=== PATIENT | female | born 1950 | race Caucasian/White ===

== ENCOUNTER → 2017-03-02 | Outpatient (CLI) | payer MEDICARE, OTHER ==
[~2017-03-02] VITALS: Ht 167.6 cm; Wt 103.0 kg
[~2017-03-02] MED LIST: ALEN70TA47 PO; ASPI-983 PO; DEXAMETHASONE PF 10 MG/ML (DECADRON) VIAL ONE; GABA-488 PO; INSU100V6 SQ; LEVO200T6 PO; LORA10TA7 PO; LOSA25TA21 PO; METF500T4 PO; NAPR-1033 PO; OMEP20CA12 PO; PRAV20TA3 PO; PROP160C2 PO; TIZA2TAB3 PO; VNL75T PO; ZOLP5TAB7 PO; methylPREDNISolone 80 MG/ML (DEPO MEDROL) VIAL ONE
[2017-03-02 13:53] VITALS: BP 157/71
--- NOTE | 2017-03-06 19:09 | OPERATIVE REPORT ---
DATE OF SERVICE: 03/02/2017 DIAGNOSIS: 1. Cervical radiculopathy. 2. Thoracic pain. PROCEDURE: Fluoroscopic guidance of thoracic epidural steroid injection. PROCEDURE IN DETAIL: After obtaining informed consent from the patient, the patient's chart was reviewed. The patient was then brought to the procedure room and placed in prone position, timeout was performed. The upper back was prepped with antiseptic solution and under fluoro guidance, patient's T1-T2 region was identified. The T1-T2 vertebral body was identified with fluoro guidance and approximately 2 mL of 1.5% lidocaine solution was used to anesthetize the skin down to the pedicle and under fluoro guidance using a 22-guage 3-1/2 inch spinal needle, this tract was anesthetized all way from the pedicle down to the intralaminar space in between T1-T2. After this tract was anesthetized, then a 20-guage Tuohy was used and involved the same tract. Using a loss of resistance syringe, the Tuohy was then directed into the epidural space under fluoro guidance. Upon obtaining loss of resistance, the syringe was exchanged for a syringe containing radiopaque dye and secondary identification of the epidural space was then obtained. At this point, the syringe was then exchanged for a syringe containing 10 mL of dexamethasone and this was injected into the epidural space, washout was identified under fluoroscopy. Needle was then flushed with the normal saline from the loss of resistance, approximately 0.5 mL and then needle removed. Bandages were applied to all procedure sites. The patient tolerated procedure well and was taken to the recovery room in stable condition. COMPLICATIONS: None. Job ID: [id number] DocumentID: [id number] Dictated Date: 03/06/2017 09:38:36 Guide Excursion Date: 03/06/2017 16:54:43 Dictated By: RO ROBERT DO
== END ==
LOC: CARD 13:11
PROVIDERS: ATTEND Pain Medicine Interventional Pain Medicine
DX: M54.12 Radiculopathy, cervical region (principal); M50.30 Other cervical disc degeneration, unspecified cervical region; D64.9 Anemia, unspecified; F41.9 Anxiety disorder, unspecified; M19.91 Primary osteoarthritis, unspecified site; K21.9 Gastro-esophageal reflux disease without esophagitis; E03.9 Hypothyroidism, unspecified; E78.00 Pure hypercholesterolemia, unspecified; I10 Essential (primary) hypertension; B19.10 Unspecified viral hepatitis B without hepatic coma; M81.0 Age-related osteoporosis without current pathological fracture; Z79.82 Long term (current) use of aspirin; Z79.899 Other long term (current) drug therapy
CPT/HCPCS: 62321

== ENCOUNTER 2017-04-27 13:49 | Outpatient (CLI) | payer MEDICARE, OTHER ==
[~2017-04-27] VITALS: Ht 167.6 cm; Wt 83.9 kg
[~2017-04-27 13:49] MED LIST changes: -DEXAMETHASONE PF 10 MG/ML (DECADRON) VIAL ONE; -methylPREDNISolone 80 MG/ML (DEPO MEDROL) VIAL ONE
[2017-04-27] MEDS ORDERED: methylPREDNISolone 80 MG/ML (DEPO MEDROL) VIAL ONE (14:11)
[2017-04-27 14:35] VITALS: BP 162/74
[2017-04-27] MEDS ORDERED: DEXAMETHASONE 10 MG/ML (DECADRON) 1 ML VIAL ONE (15:03)
[2017-04-27 15:21] VITALS: BP 165/83
--- NOTE | 2017-04-29 04:10 | OPERATIVE REPORT ---
DATE OF SERVICE: 04/27/2017 DIAGNOSES: 1. Cervical radiculopathy. 2. Thoracic pain. PROCEDURE: Fluoroscopic guidance of thoracic epidural steroid injection, T1-T2 PROCEDURE IN DETAIL: After obtaining informed consent from the patient, the patient's chart was reviewed. The patient was then brought to the procedure room and placed in prone position, timeout was performed. The upper back was prepped with antiseptic solution and under fluoro guidance, patient's T1-T2 region was identified. The T1-T2 vertebral body was identified with fluoro guidance and approximately 2 mL of 1.5% lidocaine solution was used to anesthetize the skin down to the pedicle and under fluoro guidance using a 22-guage 3-1/2 inch spinal needle, this tract was anesthetized all way from the pedicle down to the intralaminar space in between T1 and T2. After this tract was anesthetized, then a 20-guage Tuohy was used and involved the same tract. Using a loss of resistance syringe, the Tuohy was then directed into the epidural space under fluoro guidance. Upon obtaining loss of resistance, the syringe was exchanged for a syringe containing radiopaque dye and secondary identification of the epidural space was then obtained. At this point, the syringe was then exchanged for a syringe containing 10 mL of dexamethasone and this was injected into the epidural space, washout was identified under fluoroscopy. Needle was then flushed with the normal saline from the loss of resistance, approximately 0.5 mL and then needle removed. Bandages were applied to all procedure sites. The patient tolerated procedure well and was taken to the recovery room in stable condition. COMPLICATIONS: None. Job ID: [id number] DocumentID: [id number] Dictated Date: 04/28/2017 19:12:42 Oral Surgery Technician Date: 04/29/2017 04:09:29 Dictated By: RO ROBERT DO
== END 2017-04-27 15:23 | disposition home or self-care (01) ==
LOC: CARD 13:49
PROVIDERS: ATTEND Pain Medicine Interventional Pain Medicine
DX: M54.12 Radiculopathy, cervical region (principal)
CPT/HCPCS: 62321

== ENCOUNTER → 2017-08-10 | Outpatient (CLI) | payer MEDICARE, OTHER | LOC: CARD 12:31 | PROVIDERS: ATTEND Internal Medicine Cardiovascular Disease | DX: I25.10 Atherosclerotic heart disease of native coronary artery without angina pectoris (principal); R07.9 Chest pain, unspecified; E13.9 Other specified diabetes mellitus without complications; R51 Headache; R60.9 Edema, unspecified; R06.02 Shortness of breath | CPT/HCPCS: 93306 ==

== ENCOUNTER → 2018-02-07 | Outpatient (CLI) | payer MEDICARE, OTHER ==
[~2018-02-07] VITALS: Ht 167.6 cm; Wt 92.1 kg
[~2018-02-07] MED LIST changes: +CATHETER FLUSH 10 ML SYR IV PRN; -LOSA25TA21 PO; +LOSA25TA6 PO; +METF-397 PO; -METF500T4 PO; +REGADENOSON 0.4 MG/5 ML SYR (LEXISCAN) IV ONE
[2018-02-07 09:59] VITALS: BP 179/85
[2018-02-07 10:04] VITALS: BP 164/77
--- NOTE | 2018-02-08 07:23 | STRESS TEST ---
DATE OF SERVICE: 02/07/2018 LEXISCAN MYOVIEW STRESS TEST REPORT REFERRING PHYSICIAN: Alfa Sifuentes DO. Baseline heart rate is 62. Baseline blood pressure is 182/86. Baseline EKG is sinus rhythm with no ischemic changes. In summary, the patient was injected with 10.11 mCi of technetium-99 Myoview and the resting images were obtained. Then, the patient received 0.4 mg of Lexiscan followed by 31.0 mCi of technetium-99 Myoview. Throughout the test, there were no EKG changes. The resting and stress images were reviewed and compared in the short axis, horizontal long axis, and vertical long axis views. Review of the images showed good radiotracer uptake with no significant ischemia or infarction. SSS is 1, SDS 1, TID value 1.02. On the gated images, the left ventricle appeared to be in normal size with normal contractility. Calculated ejection fraction is 60%. CONCLUSION: 1. The patient tolerated Lexiscan well. 2. No ischemia or infarction on SPECT images. 3. Normal left ventricular size with normal contractility. Calculated ejection fraction is 60%. Job ID: [id number] DocumentID: [id number] Dictated Date: 02/08/2018 06:41:22 Border Inspector Date: 02/08/2018 07:23:17 Dictated By: ELMER VALADEZ MD
== END ==
LOC: CARD 07:30
PROVIDERS: ATTEND Physician Assistant
DX: I25.10 Atherosclerotic heart disease of native coronary artery without angina pectoris (principal); R07.89 Other chest pain; K21.9 Gastro-esophageal reflux disease without esophagitis
CPT/HCPCS: 78452; 93017

== ENCOUNTER → 2020-08-11 | Outpatient (CLI) | payer MEDICARE, OTHER ==
[~2020-08-11] MED LIST changes: -ALEN70TA47 PO; +ALEN70TA80 PO; +ASPI-1238 PO; -ASPI-983 PO; -CATHETER FLUSH 10 ML SYR IV PRN; +LOSA25TA41 PO; -LOSA25TA6 PO; -OMEP20CA12 PO; +OMEP20CA18 PO; -REGADENOSON 0.4 MG/5 ML SYR (LEXISCAN) IV ONE; +TIZA-169 PO; -TIZA2TAB3 PO
== END ==
LOC: CARD 11:00
PROVIDERS: ATTEND Internal Medicine Cardiovascular Disease
DX: I11.9 Hypertensive heart disease without heart failure (principal); I34.0 Nonrheumatic mitral (valve) insufficiency
CPT/HCPCS: 93306

== ENCOUNTER → 2020-08-17 | Outpatient (CLI) | payer MEDICARE, OTHER ==
--- NOTE | 2020-08-17 13:46 | Diagnostic Imaging Report ---
INDICATION: Difficulty swallowing. TECHNIQUE: The procedure was performed in conjunction with Speech Pathology. Video fluoroscopy was performed during the swallowing of barium in multiple consistencies. A total of 54 seconds of fluoroscopic time was utilized. FINDINGS: The patient was given thin and thick barium as well as mechanical soft, meat, and cracker consistencies. The oral phase is unremarkable. There is normal epiglottic tilt and laryngeal elevation. No aspiration or penetration was observed. No residue was demonstrated. IMPRESSION: Normal modified barium swallow. Dictated by: Dictated on workstation # [id number]
== END ==
LOC: RAD 08:35
PROVIDERS: ATTEND Family Medicine
DX: R13.12 Dysphagia, oropharyngeal phase (principal)
CPT/HCPCS: 74230

== ENCOUNTER 2021-06-04 05:37 | Outpatient (CLI) | payer MEDICARE ==
[~2021-06-04] VITALS: Ht 165.5 cm; Wt 99.8 kg
[2021-06-08] MEDS ORDERED: RT-ALBUINH IH (14:33)
[2021-06-08] MEDS ORDERED: DICL20GE TP (14:33)
[2021-06-08] MEDS ORDERED: CETI10CA PO (14:33)
[2021-06-08] MEDS ORDERED: CIPR1DRO OT (14:33)
[2021-06-08] MEDS ORDERED: DULO30CA49 PO (14:33)
[2021-06-08] MEDS ORDERED: MELA10TA PO (14:33)
[2021-06-08] MEDS ORDERED: TOLT2TAB19 PO (14:33)
[2021-06-08] MEDS ORDERED: FLUT9.9S NS (14:33)
[2021-06-08] MEDS ORDERED: CARB100T6 PO (14:33)
[2021-06-08] MEDS ORDERED: LINA5TAB PO (14:33)
[2021-06-08] MEDS ORDERED: PRIM250T33 PO (14:33)
[2021-06-08] MEDS ORDERED: TRM50T PO (14:33)
[2021-06-08] MEDS ORDERED: GABA800T10 PO (14:41)
[2021-06-08] MEDS ORDERED: TIZA4CAP8 PO (14:46)
[2021-06-08] MEDS ORDERED: TIZA6CAP9 PO (14:46)
== END 2021-06-09 08:27 | disposition home or self-care (01) ==
LOC: PREOP 05:37
PROVIDERS: ATTEND Otolaryngology Otolaryngology/Facial Plastic Surgery
DX: Z01.818 Encounter for other preprocedural examination (principal)

== ENCOUNTER 2021-06-11 08:14 | Day surgery (SDC) | payer MEDICARE ==
[2021-06-11] VITALS (10 sets, daily range): BP systolic 154–187; BP diastolic 5–80
[~2021-06-11] VITALS: Ht 165.5 cm; Wt 99.8 kg
[~2021-06-11 08:14] MED LIST changes: +CARB100T6 PO; +CETI10CA PO; +CIPR1DRO OT; +DICL20GE TP; +DULO30CA49 PO; +FLUT9.9S NS; +GABA800T10 PO; +LINA5TAB PO; +MELA10TA PO; +PRIM250T33 PO; +RT-ALBUINH IH; +TIZA4CAP8 PO; +TIZA6CAP9 PO; +TOLT2TAB19 PO; +TRM50T PO
[2021-06-11] MEDS ORDERED: LIDOCAINE/EPI 1%-1:200,000 (XYLOCAINE) 30 ML VIAL ONE (08:26)
[2021-06-11] MEDS ORDERED: MUPIROCIN 2% OINT 22 GM (BACTROBAN) TUBE ONE (08:26)
[2021-06-11] MEDS: LACTATED RINGERS 1,000 ML IV PRN ×3 (08:45→10:34)
[2021-06-11 08:48] LABS: HEMATOCRIT 37 % (35-52); HEMOGLOBIN 11.3 g/dL (11.5-16.0); MEAN CORPUSCULAR HEMOGLOBIN 28 pg (25-34); MEAN CORPUSCULAR HGB CONC 31 g/dL (32-36); MEAN CORPUSCULAR VOLUME 92 fL (80-99); MEAN PLATELET VOLUME 10.7 fL (9.0-12.2); PLATELET COUNT 283 10^3/uL (130-400); WHITE BLOOD COUNT 6.8 10^3/uL (4.3-11.0)
[2021-06-11 09:04] LABS: CALCIUM 9.2 MG/DL (8.5-10.1); CREATININE SERUM 1.16 MG/DL (0.60-1.30); POTASSIUM 4.4 MMOL/L (3.6-5.0)
[2021-06-11] MEDS ORDERED: MIDAZOLAM 2 MG/2 ML (VERSED) VIAL ONE (09:10)
[2021-06-11] MEDS ORDERED: fentaNYL INJ 100 MCG/2 ML AMP ONE (09:10)
--- NOTE | 2021-06-11 09:12 | Progress Note-Pre Operative ---
Pre-Operative Progress Note H&P Reviewed The H&P was reviewed, patient examined and no changes noted. 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
--- NOTE | 2021-06-11 09:36 | Progress Note-Post Operative ---
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 Specimen(s) collected/removed right chin lesion for frozen section RO AZAR MD Jun 11, 2021 09:36
[2021-06-11] MEDS ORDERED: ACETAMINOPHEN 325 MG TABLET PO PRN (09:45)
[2021-06-11] MEDS ORDERED: SEVOFLURANE (ULTANE) 15 ML INHAL SOLN ONE ×2 (10:03→10:04)
[2021-06-11] MEDS ORDERED: LIDOCAINE PF 2% 5 ML (XYLOCAINE) VIAL ONE (10:04)
[2021-06-11] MEDS ORDERED: proPOfol 200 MG/20 ML (DIPRIVAN) VIAL IV ONE (10:04)
--- NOTE | 2021-06-11 10:13 | Anesthesia-General Post-Op ---
General Patient Condition Mental Status/LOC: Same as Preop Cardiovascular: Satisfactory Nausea/Vomiting: Absent Respiratory: Satisfactory Pain: Controlled Complications: Absent Post Op Complications Complications None Follow Up Care/Instructions Patient Instructions None needed. Anesthesia/Patient Condition Patient Condition Patient is doing well, no complaints, stable vital signs, no apparent adverse anesthesia problems. No complications reported per nursing. TSERING BROWN CRNA Jun 11, 2021 10:13
== END 2021-06-11 12:20 ==
LOC: SDC 08:14
PROVIDERS: ATTEND Otolaryngology Otolaryngology/Facial Plastic Surgery
DX: C44.319 Basal cell carcinoma of skin of other parts of face (principal); K21.9 Gastro-esophageal reflux disease without esophagitis; E11.9 Type 2 diabetes mellitus without complications; E03.9 Hypothyroidism, unspecified; E78.5 Hyperlipidemia, unspecified; G47.33 Obstructive sleep apnea (adult) (pediatric); F41.9 Anxiety disorder, unspecified; F32.A Depression, unspecified; Z99.89 Dependence on other enabling machines and devices; Z79.899 Other long term (current) drug therapy; Z79.82 Long term (current) use of aspirin; Z79.4 Long term (current) use of insulin; Z79.890 Hormone replacement therapy
CPT/HCPCS: 36415; 80048; 85027; 87081

== ENCOUNTER → 2022-05-25 | Outpatient (CLI) | payer MEDICARE ==
[~2022-05-25] VITALS: Ht 167 cm; Wt 99.0 kg
[~2022-05-25] MED LIST changes: +ALBU8.5H6 IH; +REGADENOSON 0.4 MG/5 ML SYR (LEXISCAN) IV ONE; -RT-ALBUINH IH
[2022-05-25] MEDS: CATHETER FLUSH 10 ML SYR IVP PRN ×2 (10:23→11:17)
[2022-05-25 11:15] VITALS: BP 172/88
--- NOTE | 2022-05-25 13:38 | Cardiology Stress Test Report ---
Stress Test Report Date of Procedure/Referring: Date of Procedure: May 25, 2022 PCP Alfa Sifuentes DO Admitting Physician Admitting Physician: Attending Physician: Eladio Carmen MD Indications: CP Baseline Heart Rate: 87 Baseline Blood Pressure: Blood Pressure Systolic: 172 Blood Pressure Diastolic: 88 Baseline Vitals Vital Signs Date Time Temp Pulse Resp B/P (MAP) Pulse Ox O2 Delivery O2 Flow Rate FiO2 05/25/22 11:15 80 16 172/88 (116) 95 Room Air Baseline EKG: Baseline EKG: NSR Summary After explaining the procedure to the patient, she signed a consent and then brought to the stress nuclear laboratory. Patient received 0.4 mg Lexiscan for stress test, ECG, heart rate and blood pressure were monitored continuously. Resting and stress dose of radio tracer were injected, imaging was acquired and reviewed in short axis, horizontal long axis and vertical long axis views. TID: 1.06 SSS: 5 SDS: 5 EF: 65 1. Patient tolerated Lexiscan well 2. Breast attenuation with mild decrease uptake at the mid anterior wall with mild reversibility most probably secondary to breast attenuation, overall there is no significant ischemia or infarction on SPECT images 3. Normal left ventricular size, ejection fraction 65% Copy Copies To 1: ALFA SIFUENTES BASHAR J MD May 25, 2022 13:38
== END ==
LOC: CARD 08:44
PROVIDERS: ATTEND Internal Medicine Cardiovascular Disease
DX: I10 Essential (primary) hypertension (principal); N64.89 Other specified disorders of breast
CPT/HCPCS: 78452; 93017; A9502; C8929; 93306

== ENCOUNTER 2022-07-28 11:39 | Emergency (ER) | payer MEDICARE ==
[~2022-07-28] VITALS: Ht 165 cm; Wt 93.0 kg
[~2022-07-28 11:39] MED LIST changes: -REGADENOSON 0.4 MG/5 ML SYR (LEXISCAN) IV ONE
--- NOTE | 2022-07-28 11:49 | ED Fall/Injury ---
General Stated Complaint: FALL | LT SIDE WRIST AND HIP PAIN Source: patient Exam Limitations: no limitations History of Present Illness Date Seen by Provider: Jul 28, 2022 Time Seen by Provider: 11:49 Initial Comments This is a well-appearing 70-year-old female who presented to the emergency department via POV for complaints of left hip and left arm pain. States that she tripped over her dog and landed on her wooden coffee table breaking it 2 days ago. She has had increased pain in hip, worse with ambulation. She has a bruise on her left shoulder, left hip, and lower back region. She denies injury to head or neck. No loss of consciousness. Denies use of anticoagulants. She is still able to move her arm and leg just with significant pain. Has not taken anything [id number]. Allergies and Home Medications Allergies Coded Allergies: Penicillins (Verified Allergy, Unknown, 11/27/15) Sulfa (Sulfonamide Antibiotics) (Verified Allergy, Unknown, 11/27/15) codeine (Verified Allergy, Unknown, 11/27/15) Patient Home Medication List Home Medication List Reviewed: Yes Albuterol Sulfate (Ventolin Hfa) 1 Puff Puff, 2 PUFF IH Q4H, (Reported) Entered as Reported by: IOANA GRIGGS on 06/08/211432 Carbamazepine (Carbamazepine) 100 Mg Tab.chew, 100 MG PO BID, (Reported) Entered as Reported by: IONAA GRIGGS on 06/08/211432 Cetirizine HCl (Zyrtec) 10 Mg Capsule, 10 MG PO DAILY, (Reported) Entered as Reported by: IOANA GRIGGS on 06/08/211432 Ciprofloxacin HCl (Cetraxal) 1 Each Droperette, 1 EACH OT, (Reported) Entered as Reported by: IOANA GRIGGS on 06/08/211432 Diclofenac Sodium (Voltaren Arthritis Pain) 20 Gm Gel..gram., 20 GM TP, (Reported) Entered as Reported by: IOANA GRIGGS on 06/08/211432 Duloxetine HCl (Duloxetine HCl) 30 Mg Capsule.dr, 30 MG PO DAILY, (Reported) Entered as Reported by: IOANA GRIGGS on 06/08/21 143 Fluticasone Propionate (Flonase Allergy Relief) 9.9 Ml [place].susp, 1 SPRAY NS DAILY, (Reported) Entered as Reported by: IOANA GRIGGS on 06/08/21 143 Gabapentin (Gabapentin) 800 Mg Tablet, 800 MG PO TID, (Reported) Entered as Reported by: IOANA GRIGGS on 06/08/21 144 Insulin Glargine,Hum.rec.anlog (Lantus) 100 Unit/1 Ml Vial, 65 UNIT SQ HS, (Reported) Entered as Reported by: ROSMERY CORONADO on 11/27/15 07 Levothyroxine Sodium (Levothyroxine Sodium) 200 Mcg Tablet, 200 MCG PO DAILY, (Reported) Entered as Reported by: ROSMERY CORONADO on 11/27/15 07 Linagliptin (Tradjenta) 5 Mg Tablet, 5 MG PO DAILY, (Reported) Entered as Reported by: IOANA GRIGGS on 06/08/21 143 Melatonin (Melatonin) 10 Mg Tab.mphase, 10 MG PO HS, (Reported) Entered as Reported by: IOANA GRIGGS on 06/08/21 143 Omeprazole (Omeprazole) 20 Mg Capsule.dr, 20 MG PO DAILY, (Reported) Entered as Reported by: ROSMERY CORONADO on 11/27/15 07 Pravastatin Sodium (Pravastatin Sodium) 20 Mg Tablet, 20 MG PO DAILY, (Reported) Entered as Reported by: ROSMERY CORONADO on 11/27/15 07 Primidone (Mysoline) Unknown Strength Tablet, 200 PO HS, (Reported) Entered as Reported by: IOANA GRIGGS on 06/08/21 143 Tizanidine HCl (Tizanidine HCl) 4 Mg Capsule, 4 MG PO DAILY, (Reported) Entered as Reported by: IOANA GRIGGS on 06/08/21 144 Tizanidine HCl (Tizanidine HCl) 6 Mg Capsule, 8 MG PO, (Reported) Entered as Reported by: IOANA GRIGGS on 06/08/21 144 Tolterodine Tartrate (Tolterodine Tartrate) 2 Mg Tablet, 4 MG PO, (Reported) Entered as Reported by: IOANA GRIGGS on 06/08/21 143 Tramadol HCl (Tramadol HCl) 50 Mg Tablet, 50 MG PO Q4H PRN for PRN, (Reported) Entered as Reported by: IOANA GRIGGS on 06/08/21 143 Review of Systems Review of Systems Constitutional: see HPI Eyes: No Symptoms Reported Ears, Nose, Mouth, Throat: no symptoms reported Respiratory: no symptoms reported Cardiovascular: no symptoms reported Gastrointestinal: no symptoms reported Genitourinary: no symptoms reported Musculoskeletal: see HPI Skin: see HPI Psychiatric/Neurological: No Symptoms Reported Past Dogoror-Tdbanp-Rcqfbm Hx Immunizations Up To Date First/Initial COVID19 Vaccinat: JUNE 2020 Second COVID19 Vaccination Tim: JULY 2020 Past Medical History Surgeries: Yes (SMALL BOWEL RESECTION, HYSTERECTOMY, GALLBLADDER, SINUS SURGERY X6, SKIN ) Abdominal, Bowel Surgery, Gallbladder, Hysterectomy Respiratory: Yes (SOA WITH COLD WEATHER AND EXPERCISE- USES INHALERS) Chronic Bronchitis, Sleep Apnea Currently Using CPAP: Yes Cardiac: Yes High Cholesterol Neurological: No Genitourinary: Yes (BLADDER LEAKING PROBLEMS) Gastrointestinal: Yes (HX HEPITITIS B) Gastroesophageal Reflux, Gall Bladder Disease Musculoskeletal: Yes Arthritis Endocrine: Yes Diabetes, Non-Insulin dep HEENT: Yes (WEARS GLASSES) Cancer: Yes Skin What Type of Treatment Did You: Surgical Intervention Psychosocial: Yes Anxiety, Depression Integumentary: Yes (SKIN CANCER X4) Physical Exam Vital Signs Vital Signs - First Documented 07/28/22 11:55 Temp 36.1 Pulse 89 Resp 20 B/P (MAP) 183/90 (121) Pulse Ox 96 O2 Delivery Room Air Capillary Refill : Height, Weight, BMI Height: 5'6.00" Weight: 203lbs. 0.0oz. 92.978436sd; 35.49 BMI Method: General Appearance: WD/WN, no apparent distress HEENT: PERRL/EOMI, normal ENT inspection, pharynx normal Neck: full range of motion, supple, normal inspection Cardiovascular: regular rate, rhythm, no edema, no gallop Respiratory: lungs clear, normal breath sounds, no respiratory distress, no accessory muscle use Gastrointestinal: normal bowel sounds, non tender, soft Back: normal inspection, vertebral tenderness (low thoracic tenderness ) Extremities: normal range of motion, normal inspection Neurologic/Psychiatric: no motor/sensory deficits, alert, normal mood/affect, oriented x 3 Skin: normal color, warm/dry, other (bruising to left posterior shoulder and left hip) Malachi Coma Score Best Eye Response: (4) Open Spontaneously Best Verbal Response: (5) Oriented Best Motor Response: (6) Obeys Commands Malachi Total: 15 Progress/Results/Core Measures Results/Orders My Orders Orders - ZEUS JACKSON APRN Humerus, Left, 2 Views (07/28/22 12:02) Femur, Left, 2 Views (07/28/22 12:02) Hip, Left, 2 Views (07/28/22 12:02) Thoracic Spine, 2 Views Only (07/28/22 12:02) Lumbar Spine - 2-3 Views (07/28/22 12:02) Urinalysis (07/28/22 12:40) Vital Signs/I&O 07/28/22 11:55 Temp 36.1 Pulse 89 Resp 20 B/P (MAP) 183/90 (121) Pulse Ox 96 O2 Delivery Room Air Progress Progress Note : Progress Note Ambulated independently to exam room 1. Vital signs stable. GCS 15. ABCs intact. Will obtain imaging of her left humerus, left hip, thoracic and lumbar spine to evaluate for any fracture. No radicular symptoms at this time. Denies need for pain management at this time. Images reviewed no acute fracture. Treatment plan reviewed and she is agreeable with plan. Follow-up with primary care provider next week return to the ER for any new or concerning symptoms. Diagnostic Imaging Diagonstic Imaging: Xray Comments [facility], [place] NAME: ULICES LAM [facility] REC#: [id number] PT STATUS: REG ER : 1950 PHYSICIAN: ZEUS JACKSON APRN ADMIT DATE: 07/28/22/ER Draft Date of Exam:07/28/22 FEMUR, LEFT, 2 VIEWS EXAMINATION: Left femur radiographs, 2 views, 4 images. COMPARISON: None. HISTORY: 72-year-old female, fall. Left femur pain. FINDINGS: The left hip is not dislocated. There is chondrocalcinosis. There is no identified acute fracture. There is degenerative type enthesopathy at the distal quadriceps tendon insertion. IMPRESSION: No acute bony abnormality of the left femur. Dictated on workstation # [id number] Dict: 07/28/22 1240 Trans: 07/28/22 1245 [facility] [id number] Interpreted by: COURTNEY DESIR MD Electronically signed by: Diagonstic Imaging: Xray Comments [facility] [place] [place] NAME: ULICES LAM [facility] REC#: [id number] PT STATUS: REG ER : 1950 PHYSICIAN: ZEUS JACKSON APRN ADMIT DATE: 07/28/22/ER Draft Date of Exam:07/28/22 HIP, LEFT, 2 VIEWS EXAMINATION: Left hip radiographs, 2 views. COMPARISON: None. HISTORY: 72-year-old female, fall. Left hip pain. FINDINGS: The left hip is not dislocated. There is no joint space loss of the left hip, osteophyte formation, or subchondral cystic change. There are mild degenerative related findings at the pubic symphysis. There is chondrocalcinosis. There is no identified acute fracture. IMPRESSION: 1. No acute bony abnormality of the left hip. Dictated on workstation # [id number] Dict: 07/28/22 1239 Trans: 07/28/22 1244 [facility] [id number] Interpreted by: COURTNEY DESIR MD Electronically signed by: Diagonstic Imaging: Xray Comments [facility] [place] [place] NAME: ULICES LAM [facility] REC#: [id number] PT STATUS: REG ER : 1950 PHYSICIAN: ZEUS JACKSON APRN ADMIT DATE: 07/28/22/ER Draft Date of Exam:07/28/22 HUMERUS, LEFT, 2 VIEWS CLINICAL INDICATION: Patient fell 2 nights ago, tripped over dog. Patient has left-sided pain and left shoulder pain. EXAM: X-ray of the left humerus, 2 views. COMPARISON: None. FINDINGS: There is no acute fracture or dislocation. There is no significant bone or joint abnormality. There are small spurs involving the left acromioclavicular region. IMPRESSION: There is no acute fracture or dislocation. Dictated on workstation # [id number] Dict: 07/28/22 1241 Trans: 07/28/22 1243 [facility] [id number] Interpreted by: LAUREN CRAFT MD Electronically signed by: Josseline [facility] [place] [place] NAME: ULICES LAM [facility] REC#: [id number] PT STATUS: REG ER : 1950 PHYSICIAN: ZEUS JACKSON APRN ADMIT DATE: 07/28/22/ER Draft Date of Exam:07/28/22 LUMBAR SPINE - 2-3 VIEWS EXAMINATION: Lumbar spine radiographs, 3 views. COMPARISON: None. HISTORY: 72-year-old female, fall 2 days ago. Low back pain. FINDINGS: There are 5 lumbar-type vertebral bodies. There is moderate disc height loss at L5-S1. There are multilevel endplate degenerative related changes of the thoracolumbar spine. There is no identified compression deformity or fracture. There is a right total hip prosthesis. The sacroiliac joints are unremarkable in appearance. There are facet degenerative changes bilaterally at L4-L5 and L5-S1. IMPRESSION: 1. Multilevel disc degenerative changes of the lumbar spine which are most notable at L5-S1. 2. Bilateral facet degenerative changes at L4-L5 and L5-S1. 3. No identified acute compression deformity or other fracture. Dictated on workstation # [id number] Dict: 07/28/22 1241 Trans: 07/28/22 1243 [facility] [id number] Interpreted by: COURTNEY DESIR MD Electronically signed by: Diagonstic Imaging: Xray Comments [facility] [place] [place] NAME: ULICES LAM [facility] REC#: [id number] PT STATUS: REG ER : 1950 PHYSICIAN: ZEUS JACKSON APRN ADMIT DATE: 07/28/22/ER Draft Date of Exam:07/28/22 THORACIC SPINE, 2 VIEWS ONLY CLINICAL INDICATIONS: Patient status post fall with pain. Patient fell 2 nights ago, tripped over dog. EXAM: X-ray of the thoracic spine, 2 views. COMPARISON: None. FINDINGS: There are moderate to severely hypertrophic spurs seen throughout the thoracic spine. There is no acute fracture or dislocation. There is limited visualization of the upper thoracic spinal on the lateral view due to overlapping anatomical structures. IMPRESSION: There is thoracic spine degenerative disease with no acute fracture or dislocation. Dictated on workstation # [id number] Dict: 07/28/22 1242 Trans: 07/28/22 1244 [facility] [id number] Interpreted by: LAUREN CRAFT MD Electronically signed by: Departure Impression Primary Impression: Fall on same level Additional Impression: Contusion Disposition: 01 HOME, SELF-CARE Condition: Stable/Unchanged Departure-Patient Inst. Decision time for Depature: 12:58 Referrals: DEZ LERNER DO (PCP/Family) Primary Care Physician Patient Instructions: Minor Contusion ED Add. Discharge Instructions: Plan: 1. Discharge home. 2. Follow up with primary care provider next week. 3. Ice 20 minutes at a time. 4. May take Tylenol or Ibuprofen as needed for comfort per package. 5. May take Tylenol or Ibuprofen as needed for pain per package. 6. Return to ER for any new, concerning, or worsening symptoms. ZEUS JACKSON HUNTER SKIN DIVER Jul 28, 2022 11:49
--- NOTE | 2022-07-28 12:43 | Diagnostic Imaging Report ---
CLINICAL INDICATION: Patient fell 2 nights ago, tripped over dog. Patient has left-sided pain and left shoulder pain. EXAM: X-ray of the left humerus, 2 views. COMPARISON: None. FINDINGS: There is no acute fracture or dislocation. There is no significant bone or joint abnormality. There are small spurs involving the left acromioclavicular region. IMPRESSION: There is no acute fracture or dislocation. Dictated by: Dictated on workstation # [id number]
--- NOTE | 2022-07-28 12:43 | Diagnostic Imaging Report ---
EXAMINATION: Lumbar spine radiographs, 3 views. COMPARISON: None. HISTORY: 72-year-old female, fall 2 days ago. Low back pain. FINDINGS: There are 5 lumbar-type vertebral bodies. There is moderate disc height loss at L5-S1. There are multilevel endplate degenerative related changes of the thoracolumbar spine. There is no identified compression deformity or fracture. There is a right total hip prosthesis. The sacroiliac joints are unremarkable in appearance. There are facet degenerative changes bilaterally at L4-L5 and L5-S1. IMPRESSION: 1. Multilevel disc degenerative changes of the lumbar spine which are most notable at L5-S1. 2. Bilateral facet degenerative changes at L4-L5 and L5-S1. 3. No identified acute compression deformity or other fracture. Dictated by: Dictated on workstation # [id number]
--- NOTE | 2022-07-28 12:44 | Diagnostic Imaging Report ---
EXAMINATION: Left hip radiographs, 2 views. COMPARISON: None. HISTORY: 72-year-old female, fall. Left hip pain. FINDINGS: The left hip is not dislocated. There is no joint space loss of the left hip, osteophyte formation, or subchondral cystic change. There are mild degenerative related findings at the pubic symphysis. There is chondrocalcinosis. There is no identified acute fracture. IMPRESSION: 1. No acute bony abnormality of the left hip. Dictated by: Dictated on workstation # [id number]
[2022-07-28] MEDS ORDERED: L.E.T. SOLUTION 3 ML SYR TOP ONE (12:45)
--- NOTE | 2022-07-28 12:45 | Diagnostic Imaging Report ---
EXAMINATION: Left femur radiographs, 2 views, 4 images. COMPARISON: None. HISTORY: 72-year-old female, fall. Left femur pain. FINDINGS: The left hip is not dislocated. There is chondrocalcinosis. There is no identified acute fracture. There is degenerative type enthesopathy at the distal quadriceps tendon insertion. IMPRESSION: No acute bony abnormality of the left femur. Dictated by: Dictated on workstation # [id number]
--- NOTE | 2022-07-28 12:45 | Diagnostic Imaging Report ---
CLINICAL INDICATIONS: Patient status post fall with pain. Patient fell 2 nights ago, tripped over dog. EXAM: X-ray of the thoracic spine, 2 views. COMPARISON: None. FINDINGS: There are moderate to severely hypertrophic spurs seen throughout the thoracic spine. There is no acute fracture or dislocation. There is limited visualization of the upper thoracic spinal on the lateral view due to overlapping anatomical structures. IMPRESSION: There is thoracic spine degenerative disease with no acute fracture or dislocation. Dictated by: Dictated on workstation # [id number]
[2022-07-28 13:09] VITALS: BP 183/90
== END 2022-07-28 13:09 | disposition home or self-care (01) ==
LOC: EDUNIT# 11:39 → ER 11:42
DX: S70.02XA Contusion of left hip, initial encounter (principal); S40.012A Contusion of left shoulder, initial encounter; M54.50 Low back pain, unspecified; G47.30 Sleep apnea, unspecified; Z99.89 Dependence on other enabling machines and devices; W01.190A Fall on same level from slipping, tripping and stumbling with subsequent striking against furniture, initial encounter
CPT/HCPCS: 72070; 72100; 73060; 73502; 73552

== ENCOUNTER → 2022-10-31 | Outpatient (CLI) | payer MEDICARE ==
[~2022-10-31] MED LIST changes: -MELA10TA PO; +MELATONIN10 M5 PO
--- NOTE | 2022-10-31 12:02 | Diagnostic Imaging Report ---
INDICATION: Routine screening. COMPARISON: 06/01/2021 and 04/28/2020. TECHNIQUE: 2D and 3D bilateral screening mammography was performed with CAD. FINDINGS: Both breasts are heterogeneously dense, limiting the sensitivity of mammography. There are benign calcifications in both breasts. The benign nodule in the medial right breast is stable. No spiculated mass or malignant-appearing microcalcifications are seen. The axillae are unremarkable. IMPRESSION: No mammographic features suspicious for malignancy are identified. ACR BI-RADS Category 2: Benign findings. Result letter will be mailed to the patient. Note: At least 10% of breast cancer is not imaged by mammography. Dictated by: Dictated on workstation # [id number]
== END ==
LOC: RAD 10:01
PROVIDERS: ATTEND Family Medicine
DX: Z12.31 Encounter for screening mammogram for malignant neoplasm of breast (principal)
CPT/HCPCS: 77063; 77067

== ENCOUNTER 2023-01-19 11:26 | Emergency (ER) | payer MEDICARE, MEDICAID ==
[~2023-01-19] VITALS: Ht 165.1 cm; Wt 97.5 kg
[2023-01-19 12:50] LABS: BASOPHILS % (AUTO) 0 % (0-10); EOSINOPHILS # (AUTO) 0.2 10^3/uL (0.0-0.3); EOSINOPHILS % (AUTO) 2 % (0-10); HEMATOCRIT 28 % (35-52); HEMOGLOBIN 7.9 g/dL (11.5-16.0); LYMPHOCYTES # (AUTO) 1.4 10^3/uL (1.0-4.0); LYMPHOCYTES % (AUTO) 16 % (12-44); MEAN CORPUSCULAR HEMOGLOBIN 24 pg (25-34); MEAN CORPUSCULAR HGB CONC 29 g/dL (32-36); MEAN CORPUSCULAR VOLUME 83 fL (80-99); MEAN PLATELET VOLUME 9.8 fL (9.0-12.2); MONOCYTES # (AUTO) 0.8 10^3/uL (0.0-1.0); MONOCYTES % (AUTO) 9 % (0-12); NEUTROPHILS # (AUTO) 6.3 10^3/uL (1.8-7.8); NEUTROPHILS % (AUTO) 72 % (42-75); PLATELET COUNT 334 10^3/uL (130-400); WHITE BLOOD COUNT 8.7 10^3/uL (4.3-11.0)
[2023-01-19 12:55] LABS: ALBUMIN 3.6 GM/DL (3.2-4.5); POTASSIUM 4.2 MMOL/L (3.6-5.0)
[2023-01-19 12:56] LABS: CALCIUM 8.6 MG/DL (8.5-10.1)
[2023-01-19 12:57] LABS: TOTAL PROTEIN 6.8 GM/DL (6.4-8.2)
[2023-01-19 12:59] LABS: BILIRUBIN,TOTAL 0.2 MG/DL (0.1-1.0)
[2023-01-19 13:01] LABS: CREATININE SERUM 1.44 MG/DL (0.60-1.30)
[2023-01-19 13:04] LABS: MAGNESIUM 1.8 MG/DL (1.6-2.4)
--- NOTE | 2023-01-19 13:12 | ED Neurological Problem ---
General Chief Complaint: Dizziness/Syncope Stated Complaint: DIZZINESS | LEG CRAMPS Nursing Triage Note: PT TO TRIAGE BY WC WITH COMPLAINT OF DIZZINESS, MUSCLE SPASMS, AND UPPER RESPIRATORY SYMPTOMS. STATES TEST NEGATIVE FOR COVID AT HOME. Source: patient Exam Limitations: no limitations History of Present Illness Date Seen by Provider: Jan 19, 2023 Time Seen by Provider: 12:32 Initial Comments 73-year-old female presents to the ER with complaints of dizzy spells. She states that the dizziness is the worst when she first gets up or is moving around. States that her vision starts to go dark. She has to sit down for the symptoms to improve. She reports that she has also been having leg cramps which occur at night, states the cramps occur in her inner thighs. Patient is on Lasix, she also takes potassium, magnesium, and calcium. States that in the past she has had low electrolyte levels due to taking Lasix. She also reports sinusitis and symptoms including green nasal drainage, burning in her sinuses, sore throat, dry cough starting last Monday. Denies fevers. She denies chest pain. Reports mild shortness of air. Denies abdominal pain, nausea, vomiting, diarrhea. Allergies and Home Medications Allergies Coded Allergies: Penicillins (Verified Allergy, Unknown, 11/27/15) Sulfa (Sulfonamide Antibiotics) (Verified Allergy, Unknown, 11/27/15) codeine (Verified Allergy, Unknown, 11/27/15) Patient Home Medication List Home Medication List Reviewed: Yes Albuterol Sulfate (Ventolin Hfa) 1 Puff Puff, 2 PUFF IH Q4H, (Reported) Entered as Reported by: IOANA GRIGGS on 06/08/21 143 Carbamazepine (Carbamazepine) 100 Mg Tab.chew, 100 MG PO BID, (Reported) Entered as Reported by: IOANA GRIGGS on 06/08/21 143 Cetirizine HCl (Zyrtec) 10 Mg Capsule, 10 MG PO DAILY, (Reported) Entered as Reported by: IOANA GRIGGS on 06/08/21 143 Ciprofloxacin HCl (Cetraxal) 1 Each Droperette, 1 EACH OT, (Reported) Entered as Reported by: IOANA GRIGGS on 06/08/21 143 Diclofenac Sodium (Voltaren Arthritis Pain) 20 Gm Gel..gram., 20 GM TP, (Reported) Entered as Reported by: IOANA GRIGGS on 06/08/21 143 Duloxetine HCl (Duloxetine HCl) 30 Mg Capsule.dr, 30 MG PO DAILY, (Reported) Entered as Reported by: IOANA GRIGGS on 06/08/21 143 Fluticasone Propionate (Flonase Allergy Relief) 9.9 Ml [place].susp, 1 SPRAY NS DAILY, (Reported) Entered as Reported by: IOANA GRIGGS on 06/08/21 143 Gabapentin (Gabapentin) 800 Mg Tablet, 800 MG PO TID, (Reported) Entered as Reported by: IOANA GRIGGS on 06/08/21 144 Insulin Glargine,Hum.rec.anlog (Lantus) 100 Unit/1 Ml Vial, 65 UNIT SQ HS, (Reported) Entered as Reported by: ROSMERY CORONADO on 11/27/15 07 Levothyroxine Sodium (Levothyroxine Sodium) 200 Mcg Tablet, 200 MCG PO DAILY, (Reported) Entered as Reported by: ROSMERY CORONADO on 11/27/15 07 Linagliptin (Tradjenta) 5 Mg Tablet, 5 MG PO DAILY, (Reported) Entered as Reported by: IOANA GRIGGS on 06/08/21 143 Melatonin (Melatonin) 10 Mg Tab.mphase, 10 MG PO HS, (Reported) Entered as Reported by: IOANA GRIGGS on 06/08/21 143 Omeprazole (Omeprazole) 20 Mg Capsule.dr, 20 MG PO DAILY, (Reported) Entered as Reported by: ROSMERY CORONADO on 11/27/15 07 Pravastatin Sodium (Pravastatin Sodium) 20 Mg Tablet, 20 MG PO DAILY, (Reported) Entered as Reported by: ROSMERY CORONADO on 11/27/15 07 Primidone (Mysoline) Unknown Strength Tablet, 200 PO HS, (Reported) Entered as Reported by: IOANA GRIGGS on 06/08/21 143 Tizanidine HCl (Tizanidine HCl) 4 Mg Capsule, 4 MG PO DAILY, (Reported) Entered as Reported by: IOANA GRIGGS on 06/08/21 144 Tizanidine HCl (Tizanidine HCl) 6 Mg Capsule, 8 MG PO, (Reported) Entered as Reported by: IOANA GRIGGS on 06/08/21 144 Tolterodine Tartrate (Tolterodine Tartrate) 2 Mg Tablet, 4 MG PO, (Reported) Entered as Reported by: IOANA GRIGGS on 06/08/21 1433 Tramadol HCl (Tramadol HCl) 50 Mg Tablet, 50 MG PO Q4H PRN for PRN, (Reported) Entered as Reported by: IOANA GRIGGS on 06/08/21 1433 Review of Systems Review of Systems Constitutional: see HPI Past Ctmtgtp-Oxxrfa-Vyismi Hx Patient Social History Tobacco Use?: No Use of E-Cig and/or Vaping dev: No Substance use?: No Alcohol Use?: No Pt feels they are or have been: No Immunizations Up To Date First/Initial COVID19 Vaccinat: JUNE 2020 Second COVID19 Vaccination Tim: JULY 2020 Third COVID19 Vaccination Date: MAY 2021 Past Medical History Surgery/Hospitalization HX: TYPE II DIABETIC, TREMORS, GERD, HYPOTHYROID, MALU, APPE, HYST, RT HIP REPLACED, LT SHOULDER, LT KNEE SCOPE, SINUS, SMALL BOWEL BYPASS FOR WEIGHT LOSS Surgeries: Yes (SMALL BOWEL RESECTION, HYSTERECTOMY, GALLBLADDER, SINUS SURGERY X6, SKIN ) Abdominal, Bowel Surgery, Gallbladder, Hysterectomy Respiratory: Yes (SOA WITH COLD WEATHER AND EXPERCISE- USES INHALERS) Chronic Bronchitis, Sleep Apnea Currently Using CPAP: Yes Cardiac: Yes High Cholesterol Neurological: No Genitourinary: Yes (BLADDER LEAKING PROBLEMS) Gastrointestinal: Yes (HX HEPITITIS B) Gastroesophageal Reflux, Gall Bladder Disease Musculoskeletal: Yes Arthritis Endocrine: Yes Diabetes, Non-Insulin dep HEENT: Yes (WEARS GLASSES) Cancer: Yes Skin What Type of Treatment Did You: Surgical Intervention Psychosocial: Yes Anxiety, Depression Integumentary: Yes (SKIN CANCER X4) Physical Exam Vital Signs Vital Signs - First Documented 01/19/23 12:14 Temp 36.7 Pulse 70 Resp 16 B/P (MAP) 91/58 (69) Pulse Ox 99 O2 Delivery Room Air Capillary Refill : Height, Weight, BMI Height: 5'6.00" Weight: 203lbs. 0.0oz. 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0-14.5 % Platelet Count 334 130-400 10^3/uL Mean Platelet Volume 9.8 9.0-12.2 fL Immature Granulocyte % (Auto) 0 % Neutrophils (%) (Auto) 72 42-75 % Lymphocytes (%) (Auto) 16 12-44 % Monocytes (%) (Auto) 9 0-12 % Eosinophils (%) (Auto) 2 0-10 % Basophils (%) (Auto) 0 0-10 % Neutrophils # (Auto) 6.3 1.8-7.8 10^3/uL Lymphocytes # (Auto) 1.4 1.0-4.0 10^3/uL Monocytes # (Auto) 0.8 0.0-1.0 10^3/uL Eosinophils # (Auto) 0.2 0.0-0.3 10^3/uL Basophils # (Auto) 0.0 0.0-0.1 10^3/uL Immature Granulocyte # (Auto) 0.0 0.0-0.1 10^3/uL Sodium Level 135 135-145 MMOL/L Potassium Level 4.2 3.6-5.0 MMOL/L Chloride Level 102 98-107 MMOL/L Carbon Dioxide Level 22 21-32 MMOL/L Anion Gap 11 5-14 MMOL/L Blood Urea Nitrogen 21 H 7-18 MG/DL Creatinine 1.44 H 0.60-1.30 MG/DL Estimat Glomerular Filtration Rate 38 BUN/Creatinine Ratio 15 Glucose Level 214 H 70-105 MG/DL Calcium Level 8.6 8.5-10.1 MG/DL Corrected Calcium 8.9 8.5-10.1 MG/DL Magnesium Level 1.8 1.6-2.4 MG/DL Total Bilirubin 0.2 0.1-1.0 MG/DL Aspartate Amino Transf (AST/SGOT) 15 5-34 U/L Alanine Aminotransferase (ALT/SGPT) 15 0-55 U/L Alkaline Phosphatase 94 40-136 U/L Total Protein 6.8 6.4-8.2 GM/DL Albumin 3.6 3.2-4.5 GM/DL Influenza Type A (RT-PCR) Not Detected Not Detecte Influenza Type B (RT-PCR) Not Detected Not Detecte SARS-CoV-2 RNA (RT-PCR) Detected H Not Detecte My Orders Orders - LARY MCCURDY APRN Cbc And Automated Diff (01/19/23 12:41) Magnesium (01/19/23 12:41) Chest 1 View, Ap/Pa Only (01/19/23 12:41) Comprehensive Metabolic Panel (01/19/23 12:41) Monitor-Rhythm Ecg Trace Only (01/19/23 12:41) Ed Iv/Invasive Line Start (01/19/23 12:41) Covid 19 Inhouse Test (01/19/23 12:41) Influenza A And B By Pcr (01/19/23 12:41) Orthostatic Vital Signs (Adult (01/19/23 13:12) Ns Iv 1000 Ml (Ns Iv 1000 Ml) (01/19/23 13:30) Vital Signs/I&O 01/19/23 01/19/23 12:14 16:16 Temp 36.7 Pulse 70 73 Resp 16 17 B/P (MAP) 91/58 (69) 124/79 Pulse Ox 99 97 O2 Delivery Room Air Room Air 01/20/23 00:00 Intake Total 1000 ml Balance 1000 ml Blood Pressure Mean: 69 Progress Progress Note : Progress Note Patient seen and evaluated, resting comfortably in bed, no acute distress. Patient was hypotensive upon arrival, blood pressure normal during my assessment. Based on exam and symptoms, work-up initiated including CBC, CMP, magnesium, chest x-ray, EKG, COVID and flu swab. 1318 Labs reviewed. Patient has significant anemia, hemoglobin 7.9, hematocrit 28. CMP shows BUN 21, elevated creatinine 1.44, GFR 38, glucose 214. Previous kidney function 06/11/2021 showed creatinine 1.16, GFR 50, BUN 12. 1 L of IV fluids ordered. Patient's most recent EF was 60 to 65%, this was completed on 05/25/2022. Chest x-ray shows no acute cardiopulmonary abnormality. COVID- positive. Dizziness may be related to dehydration or anemia. 1550 results discussed with patient. Patient instructed to start taking iron supplement. Patient states that she has had anemia in the past and required medication, she is uncertain what medications she required. She denies any bleeding in her stool, denies bloody emesis, denies bleeding from any other location. Patient is on day 6 of COVID symptoms, she is out of the window for Paxlovid. Patient instructed to follow-up with her primary care provider if her sinusitis symptoms continue past 10 days. Discharge instructions and return precautions provided. Initial ECG Impression Date: Jan 19, 2023 Initial ECG Impression Time: 12:50 Initial ECG Rate: 64 Initial ECG Rhythm: Normal Sinus Initial ECG Intervals: Normal Initial ECG Impression: Normal Initial ECG Comparisson: Unchanged Departure Impression Primary Impression: Dizziness Additional Impressions: COVID Anemia Qualified Codes: D64.9 - Anemia, unspecified Disposition: 01 HOME, SELF-CARE Condition: Stable Departure-Patient Inst. Decision time for Depature: 15:52 Referrals: DEZ LERNER DO (PCP/Family) Primary Care Physician Patient Instructions: COVID-19 (DC) Add. Discharge Instructions: You should start taking an iron supplement, it is best to take with vitamin C. Vitron C is an iron supplement that contains vitamin C. You also can take regular iron with orange juice. Follow-up with your primary care provider regarding your anemia. If your sinus infection symptoms continue for 10 days, you will need an antibiotic at that time, you do not currently need an antibiotic. You need to stay in isolation until your symptoms start improving, then you must wear a mask for 5 days when in public. Return for significant shortness of breath, or any other new, concerning, or worsening symptoms. All discharge instructions reviewed with patient and/or family. Voiced understanding. LARY MCCURDY APRN Jan 19, 2023 13:11
--- NOTE | 2023-01-19 13:21 | Diagnostic Imaging Report ---
INDICATION: Chest pain. FINDINGS: Lungs are clear. No failure, effusion or pneumothorax. IMPRESSION: No acute appearing abnormality. Dictated by: Dictated on workstation # [id number]
[2023-01-19] MEDS ORDERED: NS IV 1000 ML 1,000 ML IV SCH (13:30)
[2023-01-19 16:16] VITALS: BP 124/79
== END 2023-01-19 16:16 | disposition home or self-care (01) ==
LOC: EDUNIT# 11:26 → ER 11:29
DX: U07.1 COVID-19 (principal); D64.9 Anemia, unspecified; R79.89 Other specified abnormal findings of blood chemistry; R03.1 Nonspecific low blood-pressure reading; G47.30 Sleep apnea, unspecified; Z99.89 Dependence on other enabling machines and devices; Z79.899 Other long term (current) drug therapy
CPT/HCPCS: 36415; 71045; 80053; 83735; 85025; 87636; 93005; 93041

== ENCOUNTER 2023-03-26 18:50 | Emergency (ER) | payer MEDICARE, MEDICAID ==
[~2023-03-26] VITALS: Ht 165.1 cm; Wt 94.0 kg
--- NOTE | 2023-03-26 19:18 | ED General ---
General Chief Complaint: Trauma-Non Activation Stated Complaint: TREMORS/FALL Source of Information: Patient Exam Limitations: No Limitations (DARIN CABAN) History of Present Illness Date Seen by Provider: Mar 26, 2023 Time Seen by Provider: 19:15 Initial Comments Patient is a 73-year-old female who presents to the ED for flulike symptoms. She states she woke up this morning with chills body aches fatigue sore throat nasal congestion. She states she had a temperature 100.6 at home. She denies taking any Tylenol or ibuprofen. She states she has been experiencing right flank pain over the past 2 days worse today. Dull achy pain no radiation. She does report some burning with urination frequent urination history of UTIs. She states she had COVID 6 weeks ago. She reports history of essential tremors. She states her tremors became worse today. She does take gabapentin and tizanidine. She states she did fall while getting up from the toilet landing back on the toilet when she stood. She also lost her balance fell against the wall hitting her right lower back. She denies hitting her head or loss of consciousness. She denies of any headache, dizziness, unilateral muscle wea kness or sensory changes. She denies any vomiting, cough, diarrhea, chest pain or shortness of breath. (DARIN CABAN) Allergies and Home Medications Allergies Coded Allergies: Penicillins (Verified Allergy, Unknown, 11/27/15) Sulfa (Sulfonamide Antibiotics) (Verified Allergy, Unknown, 11/27/15) codeine (Verified Allergy, Unknown, 11/27/15) Patient Home Medication List Home Medication List Reviewed: Yes (DARIN CABAN) Albuterol Sulfate (Ventolin Hfa) 1 Puff Puff, 2 PUFF IH Q4H, (Reported) Entered as Reported by: IOANA GRIGGS on 06/08/21 143 Carbamazepine (Carbamazepine) 100 Mg Tab.chew, 100 MG PO BID, (Reported) Entered as Reported by: IOANA GRIGGS on 06/08/21 1433 Cephalexin (Cephalexin) 500 Mg Tablet, 500 MG PO BID Prescribed by: DOV CANSECO on 03/26/232146 Cetirizine HCl (Zyrtec) 10 Mg Capsule, 10 MG PO DAILY, (Reported) Entered as Reported by: IOANA GRIGGS on 06/08/21 143 Ciprofloxacin HCl (Cetraxal) 1 Each Droperette, 1 EACH OT, (Reported) Entered as Reported by: IOANA GRIGGS on 06/08/21 143 Diclofenac Sodium (Voltaren Arthritis Pain) 20 Gm Gel..gram., 20 GM TP, (Reported) Entered as Reported by: IOANA GRIGGS on 06/08/21 143 Duloxetine HCl (Duloxetine HCl) 30 Mg Capsule.dr, 30 MG PO DAILY, (Reported) Entered as Reported by: IOANA GRIGGS on 06/08/21 143 Fluticasone Propionate (Flonase Allergy Relief) 9.9 Ml [place].susp, 1 SPRAY NS DAILY, (Reported) Entered as Reported by: IOANA GRIGGS on 06/08/21 143 Gabapentin (Gabapentin) 800 Mg Tablet, 800 MG PO TID, (Reported) Entered as Reported by: IOANA GRIGGS on 06/08/21 144 Insulin Glargine,Hum.rec.anlog (Lantus) 100 Unit/1 Ml Vial, 65 UNIT SQ HS, (Reported) Entered as Reported by: ROSMERY CORONADO on 11/27/15 07 Levothyroxine Sodium (Levothyroxine Sodium) 200 Mcg Tablet, 200 MCG PO DAILY, (Reported) Entered as Reported by: ROSMERY CORONADO on 11/27/15 07 Linagliptin (Tradjenta) 5 Mg Tablet, 5 MG PO DAILY, (Reported) Entered as Reported by: IOANA GRIGGS on 06/08/211432 Melatonin (Melatonin) 10 Mg Tab.mphase, 10 MG PO HS, (Reported) Entered as Reported by: IOANA GRIGGS on 06/08/211432 Omeprazole (Omeprazole) 20 Mg Capsule.dr, 20 MG PO DAILY, (Reported) Entered as Reported by: ROSMERY CORONADO on 11/27/15 07 Pravastatin Sodium (Pravastatin Sodium) 20 Mg Tablet, 20 MG PO DAILY, (Reported) Entered as Reported by: ROSMERY CORONADO on 11/27/15 07 Primidone (Mysoline) Unknown Strength Tablet, 200 PO HS, (Reported) Entered as Reported by: IOANA GRIGGS on 06/08/21 1433 Tizanidine HCl (Tizanidine HCl) 4 Mg Capsule, 4 MG PO DAILY, (Reported) Entered as Reported by: IOANA GRIGGS on 06/08/21 1446 Tizanidine HCl (Tizanidine HCl) 6 Mg Capsule, 8 MG PO, (Reported) Entered as Reported by: IOANA GRIGGS on 06/08/21 1446 Tolterodine Tartrate (Tolterodine Tartrate) 2 Mg Tablet, 4 MG PO, (Reported) Entered as Reported by: IOANA GRIGGS on 06/08/21 143 Tramadol HCl (Tramadol HCl) 50 Mg Tablet, 50 MG PO Q4H PRN for PRN, (Reported) Entered as Reported by: IOANA GRIGGS on 06/08/21 143 Review of Systems Review of Systems Constitutional: chills; No diaphoresis; malaise, weakness EENTM: No ear pain, No blurred vision, No double vision, No eye pain, No tearing, No mouth pain, No mouth swelling, No throat pain Respiratory: No cough, No dyspnea on exertion Cardiovascular: No chest pain, No edema Gastrointestinal: No abdominal pain, No diarrhea, No nausea, No vomiting Genitourinary: No decreased output, No discharge; dysuria, frequency Musculoskeletal: back pain; No joint pain Skin: No change in color, No change in hair/nails (DARIN CABAN) All Other Systems Reviewed Negative Unless Noted: Yes (DARIN CABAN) Past Kidpreu-Nioiwh-Pjmuyh Hx Immunizations Up To Date First/Initial COVID19 Vaccinat: JUNE 2020 Second COVID19 Vaccination Tim: JULY 2020 Third COVID19 Vaccination Date: MAY 2021 (DARIN CABAN) Past Medical History Surgery/Hospitalization HX: TYPE II DIABETIC, TREMORS, GERD, HYPOTHYROID, MALU, APPE, HYST, RT HIP REPLACED, LT SHOULDER, LT KNEE SCOPE, SINUS, SMALL BOWEL BYPASS FOR WEIGHT LOSS Surgeries: Yes (SMALL BOWEL RESECTION, HYSTERECTOMY, GALLBLADDER, SINUS SURGERY X6, SKIN ) Abdominal, Bowel Surgery, Gallbladder, Hysterectomy Respiratory: Yes (SOA WITH COLD WEATHER AND EXPERCISE- USES INHALERS) Chronic Bronchitis, Sleep Apnea Currently Using CPAP: Yes Cardiac: Yes High Cholesterol Neurological: No Genitourinary: Yes (BLADDER LEAKING PROBLEMS) Gastrointestinal: Yes (HX HEPITITIS B) Gastroesophageal Reflux, Gall Bladder Disease Musculoskeletal: Yes Arthritis Endocrine: Yes Diabetes, Non-Insulin dep HEENT: Yes (WEARS GLASSES) Cancer: Yes Skin What Type of Treatment Did You: Surgical Intervention Psychosocial: Yes Anxiety, Depression Integumentary: Yes (SKIN CANCER X4) (DARIN CABAN) Physical Exam Vital Signs Vital Signs - First Documented 03/26/23 19:05 Temp 39.0 Pulse 97 Resp 20 B/P (MAP) 170/75 (106) Pulse Ox 97 (YUNIER,HAMILTON K DO) Vital Signs Capillary Refill : (DARIN CABAN) Height, Weight, BMI Height: 5'6.00" Weight: 203lbs. 0.0oz. [id number]; 35.00 BMI Method: General Appearance: No Apparent Distress, WD/WN Eyes: Bilateral Eye Normal Inspection, Bilateral Eye PERRL, Bilateral Eye Abnormal EOM HEENT: PERRL/EOMI, TMs Normal, Normal ENT Inspection, Pharynx Normal Neck: Full Range of Motion, Normal Inspection, Non Tender, Supple Respiratory: Chest Non Tender, Lungs Clear, Normal Breath Sounds, No Accessory Muscle Use, No Respiratory Distress Cardiovascular: Regular Rate, Rhythm, No Edema, No Gallop, No JVD Gastrointestinal: Normal Bowel Sounds, No Organomegaly, No Pulsatile Mass, Non Tender Back: CVA Tenderness (R) Extremity: Normal Capillary Refill, Normal Inspection, Normal Range of Motion Neurologic/Psychiatric: Alert, Oriented x3, No Motor/Sensory Deficits, Normal Mood/Affect Skin: Normal Color, Warm/Dry (DARIN CABAN) Progress/Results/Core Measures Suspected Sepsis SIRS Temperature: Pulse: Respiratory Rate: Laboratory Tests 03/26/23 19:18: White Blood Count 12.3H Blood Pressure / Mean: Laboratory Tests 03/26/23 19:18: Creatinine 1.10, Platelet Count 239, Total Bilirubin 0.3 (DARIN CABAN) Results/Orders Lab Results Laboratory Tests Test 03/26/23 19:18 03/26/23 20:56 Range/Units White Blood Count 12.3 H 4.3-11.0 10^3/uL Red Blood Count 4.27 3.80-5.11 10^6/uL Hemoglobin 12.1 11.5-16.0 g/dL Hematocrit 39 35-52 % Mean Corpuscular Volume 92 80-99 fL Mean Corpuscular Hemoglobin 28 25-34 pg Mean Corpuscular Hemoglobin Concent 31 L 32-36 g/dL Red Cell Distribution Width 18.2 H 10.0-14.5 % Platelet Count 239 130-400 10^3/uL Mean Platelet Volume 10.1 9.0-12.2 fL Immature Granulocyte % (Auto) 0 % Neutrophils (%) (Auto) 76 H 42-75 % Lymphocytes (%) (Auto) 16 12-44 % Monocytes (%) (Auto) 7 0-12 % Eosinophils (%) (Auto) 0 0-10 % Basophils (%) (Auto) 0 0-10 % Neutrophils # (Auto) 9.3 H 1.8-7.8 10^3/uL Lymphocytes # (Auto) 2.0 1.0-4.0 10^3/uL Monocytes # (Auto) 0.9 0.0-1.0 10^3/uL Eosinophils # (Auto) 0.0 0.0-0.3 10^3/uL Basophils # (Auto) 0.0 0.0-0.1 10^3/uL Immature Granulocyte # (Auto) 0.0 0.0-0.1 10^3/uL Sodium Level 137 135-145 MMOL/L Potassium Level 4.2 3.6-5.0 MMOL/L Chloride Level 101 98-107 MMOL/L Carbon Dioxide Level 24 21-32 MMOL/L Anion Gap 12 5-14 MMOL/L Blood Urea Nitrogen 17 7-18 MG/DL Creatinine 1.10 0.60-1.30 MG/DL Estimat Glomerular Filtration Rate 52 BUN/Creatinine Ratio 15 Glucose Level 103 70-105 MG/DL Calcium Level 8.9 8.5-10.1 MG/DL Corrected Calcium 9.0 8.5-10.1 MG/DL Magnesium Level 1.7 1.6-2.4 MG/DL Total Bilirubin 0.3 0.1-1.0 MG/DL Aspartate Amino Transf (AST/SGOT) 17 5-34 U/L Alanine Aminotransferase (ALT/SGPT) 22 0-55 U/L Alkaline Phosphatase 99 40-136 U/L C-Reactive Protein High Sensitivity 3.66 H 0.00-0.50 MG/DL Total Protein 7.3 6.4-8.2 GM/DL Albumin 3.9 3.2-4.5 GM/DL Influenza Type A (RT-PCR) Not Detected Not Detecte Influenza Type B (RT-PCR) Not Detected Not Detecte SARS-CoV-2 RNA (RT-PCR) Not Detected Not Detecte Urine Color YELLOW Urine Clarity CLEAR Urine pH 5.5 5-9 Urine Specific [place] 1.020 1.016-1.022 Urine Protein TRACE H NEGATIVE Urine Glucose (UA) 3+ H NEGATIVE Urine Ketones 1+ H NEGATIVE Urine Nitrite NEGATIVE NEGATIVE Urine Bilirubin NEGATIVE NEGATIVE Urine Urobilinogen 0.2 < = 1.0 MG/DL Urine Leukocyte Esterase NEGATIVE NEGATIVE Urine RBC (Auto) NEGATIVE NEGATIVE Urine RBC NONE /HPF Urine WBC NONE /HPF Urine Squamous Epithelial Cells 5-10 /HPF Urine Crystals NONE /LPF Urine Bacteria NEGATIVE /HPF Urine Casts NONE /LPF Urine Mucus NEGATIVE /LPF Urine Culture Indicated NO (HAMILTON FAYE DO) Medications Given in ED Current Medications Medications Dose Ordered Sig/[place] Route Start Time Stop Time Status Last Admin Dose Admin Acetaminophen 1,000 mg ONCE ONCE PO 03/26/23 20:00 03/26/23 20:01 DC 03/26/23 20:05 1,000 MG Ketorolac Tromethamine 30 mg ONCE ONCE IVP 03/26/23 21:45 03/26/23 21:46 DC 03/26/23 22:14 30 MG (KHADRA FAYEA Dick DO) Vital Signs/I&O 03/26/23 03/26/23 03/26/23 03/26/23 19:05 20:05 21:20 22:18 Temp 39.0 39.0 38.2 Pulse 97 87 Resp 20 B/P (MAP) 170/75 (106) 134/71 Pulse Ox 97 95 (YUNIERHAMILTON K DO) Vital Signs/I&O Capillary Refill : (DARIN CABAN) Departure Communication (PCP) Reviewed previous ER visits, H&P, lab testing. Differential diagnosis viral syndrome, pneumonia, UTI, pyelonephritis. Started with flulike symptoms this morning. Increase of her daily tremors. She does have essential tremor currently on tizanidine and gabapentin. She denies of any specific chest pain short of breath vomiting or diarrhea. No headache but does have some mild dizziness. She reports urinary symptoms and right flank pain for the past 2 days. She had 2 falls today mechanical. She has a history of falls secondary to her tremors. She states she has been falling for 2 years now. Typically results when she has an infection. She denies hitting her head or loss of consciousness. She did hit her right flank against the toilet ehrn she fell today. She has no thoracic or lumbar midline tenderness. No bowel or urine incontinece or saddle paresthesia. She did have a low-grade temperature. COVID influenza was ordered. CBC, CMP, generalized lab work. She did receive Tylenol for the fever. Patient was slightly hypertensive but did improve without medication. CBC shows slight elevated white blood count of 12. Chemistry was grossly unremarkable. Urinalysis without strong evidence of infection. Chest x-ray was negative for pneumonia. No obvious source of infection. She has no meningeal signs. Patient's symptoms appear to be improving after the Tylenol. She does report a history of UTIs. Due to the right flank pain did obtain a CT abdomen pelvis which was negative for nephrolithiasis, pyelonephritis or surgical abdomen. Constipation noted. Discussed oral laxatives. Patient states she feels comfortable going home. She does have a walker that she could use. Recommend continue hydration. She has no strokelike symptoms. Recommend returning if symptoms worsen such as severe head pain, vomiting, unilateral weakness, chest pain, back pain or shortness of breath. Discharged with Keflex and is recommended to take if urinary symptoms progress due to her history of urinary tract infections.. Follow-up your PCP in 2 to 3 days for reevaluation. (DARIN CABAN) Impression Primary Impression: Flu-like symptoms Additional Impression: Fever Disposition: 01 HOME, SELF-CARE Condition: Stable Departure-Patient Inst. Decision time for Depature: 21:46 (DARIN CABAN) Referrals: DEZ LERNER DO (PCP/Family) Primary Care Physician Patient Instructions: Viral Syndrome (DC) Add. Discharge Instructions: Recommend continue with Tylenol or ibuprofen for fever or pain. If any worsening symptoms return back to ED. If continued urinary symptoms will discharge with Keflex. Need to follow-up with your primary within this next week for reevaluation. All discharge instructions reviewed with patient and/or family. Voiced understanding. Scripts Cephalexin (Cephalexin) 500 Mg Tablet 500 MG PO BID for 7 Days, #14 TAB Prov: DARIN CABAN 03/26/23 ATTENDING PHYSICIAN NOTE: I WAS PHYSICALLY PRESENT ER PHYSICIAN, BUT I WAS NOT INVOLVED IN ANY DECISION MAKING OR ANY CARE OF THIS PATIENT, AND I AM NOT COLLABORATING PHYSICIAN. (HAMILTON FAYE DO) DARIN CABAN Mar 26, 2023 19:18 HAMILTON FAYE DO Mar 27, 2023 00:13
[2023-03-26 19:28] LABS: BASOPHILS % (AUTO) 0 % (0-10); EOSINOPHILS % (AUTO) 0 % (0-10); HEMATOCRIT 39 % (35-52); HEMOGLOBIN 12.1 g/dL (11.5-16.0); LYMPHOCYTES % (AUTO) 16 % (12-44); MEAN CORPUSCULAR HEMOGLOBIN 28 pg (25-34); MEAN CORPUSCULAR HGB CONC 31 g/dL (32-36); MEAN CORPUSCULAR VOLUME 92 fL (80-99); MEAN PLATELET VOLUME 10.1 fL (9.0-12.2); MONOCYTES # (AUTO) 0.9 10^3/uL (0.0-1.0); MONOCYTES % (AUTO) 7 % (0-12); NEUTROPHILS # (AUTO) 9.3 10^3/uL (1.8-7.8); NEUTROPHILS % (AUTO) 76 % (42-75); PLATELET COUNT 239 10^3/uL (130-400); WHITE BLOOD COUNT 12.3 10^3/uL (4.3-11.0)
[2023-03-26 19:47] LABS: ALBUMIN 3.9 GM/DL (3.2-4.5); CALCIUM 8.9 MG/DL (8.5-10.1); CREATININE SERUM 1.1 MG/DL (0.60-1.30); MAGNESIUM 1.7 MG/DL (1.6-2.4); TOTAL PROTEIN 7.3 GM/DL (6.4-8.2)
[2023-03-26] MEDS ORDERED: ACETAMINOPHEN 500 MG TABLET PO ONE (20:00)
[2023-03-26 20:11] LABS: POTASSIUM 4.2 MMOL/L (3.6-5.0)
[2023-03-26 20:15] LABS: BILIRUBIN,TOTAL 0.3 MG/DL (0.1-1.0)
--- NOTE | 2023-03-26 20:16 | Diagnostic Imaging Report ---
INDICATION: Persistent cough. EXAMINATION: Portable chest at 7:33 PM. FINDINGS: Heart size and pulmonary vascularity are normal. Lungs are clear. There is no effusion or pneumothorax. IMPRESSION: Negative chest. Dictated by: Dictated on workstation # [id number]
--- NOTE | 2023-03-26 21:04 | Diagnostic Imaging Report ---
PROCEDURE: CT urinary tract, rule out kidney stone. TECHNIQUE: Multiple contiguous axial images were obtained through the abdomen and pelvis without the use of intravenous contrast. Auto Exposure Controls were utilized during the CT exam to meet ALARA standards for radiation dose reduction. INDICATION: Right flank pain. FINDINGS: Lung bases are clear. Liver appears normal. Pancreas appears normal. Spleen is not enlarged. Kidneys and adrenals appear normal. There is a large amount of stool in the colon. Small bowel is not dilated. There is no evidence of appendicitis. Urinary bladder is normal. There are postop changes of right hip arthroplasty. IMPRESSION: Fecal stasis. No acute abnormality seen. Dictated by: Dictated on workstation # [id number]
[2023-03-26 21:18] LABS: CLARITY,URINE CLEAR; COLOR,URINE YELLOW
[2023-03-26 21:19] LABS: BACTERIA,URINE NEGATIVE /HPF; BILIRUBIN,URINE NEGATIVE (NEGATIVE); GLUCOSE, URINE (UA) 3+ (NEGATIVE); KETONES,URINE 1+ (NEGATIVE); LEUKOCYTE ESTERASE ,URINE NEGATIVE (NEGATIVE); NITRITE,URINE NEGATIVE (NEGATIVE); PH,URINE 5.5 (5-9); PROTEIN,URINE TRACE (NEGATIVE)
[2023-03-26] MEDS ORDERED: KETOROLAC INJ 30 MG/ML VIAL IVP ONE (21:45)
[2023-03-26] MEDS ORDERED: CEPH500T PO (21:47)
[2023-03-26 22:18] VITALS: BP 134/71
== END 2023-03-26 22:19 | disposition home or self-care (01) ==
LOC: EDUNIT# 18:50 → ER 18:53
DX: R50.9 Fever, unspecified (principal); R53.83 Other fatigue; R09.81 Nasal congestion; G47.30 Sleep apnea, unspecified; Z88.0 Allergy status to penicillin; Z88.2 Allergy status to sulfonamides; Z99.89 Dependence on other enabling machines and devices
CPT/HCPCS: 36415; 71045; 74176; 80053; 81000; 83735; 85025; 86141; 87636